=== PATIENT | male | born 1960 | race Caucasian/White ===

== ENCOUNTER → 2017-02-27 | Outpatient (CLI) | payer OTHER, MEDICAID | LOC: FIMAGING 14:06 | PROVIDERS: ATTEND Podiatrist Primary Podiatric Medicine | DX: R22.41 Localized swelling, mass and lump, right lower limb (principal); M79.661 Pain in right lower leg ==

== ENCOUNTER 2017-10-11 12:03 | Emergency (ER) | payer OTHER ==
[2017-10-11 12:12] VITALS: O2SAT 96
--- NOTE | 2017-10-11 12:58 | ASMTCMCOM ---
CM Note CM Note Notes: Pt requesting assistance with getting a new PCP since recently moving back to [place] from [place]. This CM called [facility] Centralized Scheduling and was able to get pt an appt tomorrow 10/12/17 at 10:30am with Dr Deidre Beverly at [facility]. Patient says this appt will work and understands he needs to arrive 15 min early. Pt plans on also discussing with Dr Beverly his need for a urologist referral, possibly a prescription for his straight cath supplies, and pain mgmt referral. CM available for further assistance if needed. Date Signed: 10/11/2017 12:58 PM Electronically Signed By:Rosaura Vinson RN
--- NOTE | 2017-10-11 13:02 | ASMTLACE ---
YUMI Acuity / Level of Answers: No Care: Did the patient have an inpatient admission? 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
--- NOTE | 2017-10-11 13:05 | ASDISCHSUM ---
Discharge Information Plan Status:Home with No Needs Medically Cleared to Leave: Discharge Date: CM D/C Disposition:Home, Routine, Self-Care ADT D/C Disposition: Projected Discharge Date: Transportation at D/C:None or Unknown Discharge Delay Reason: Follow-Up Date: Discharge Slot: Final Diagnosis: Placement Information Patient Contact Information Contact Name:DOROTHEA Relationship:Sister Address: Work Phone: City:[place] Alternate Phone: State/[place] Code[place] Email: Financial Information Financial Class:Medicare Advantage Plans Primary Plan Desc:[place] [facility] ver[employer] Primary Plan Number:[id number] Secondary Plan Desc: Secondary Plan Number: Assessment Information [facility] CM Progress Note CM Note CM Note Notes: Pt requesting assistance with getting a new PCP since recently moving back to [place] from [place]. This CM called [facility] Scheduling and was able to get pt an appt tomorrow 10/12/17 at 10:30am with Dr Deidre Beverly at [facility]. Patient says this appt will work and understands he needs to arrive 15 min early. Pt plans on also discussing with Dr Beverly his need for a urologist referral, possibly a prescription for his straight cath supplies, and pain mgmt referral. CM available for further assistance if needed. Date Signed: 10/11/2017 12:58 PM Electronically Signed By:Rosaura Vinson RN LACE LACNissa Acuity / Level of Answers: No Care: Did the patient have an inpatient admission? 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
[2017-10-11] MEDS ORDERED: KETOROLAC 30 MG/1 ML SDV IM ONE (13:37)
--- NOTE | 2017-10-11 13:45 | EDPHY ---
H & P Time Seen by Provider: 10/11/17 12:55 HPI/ROS: HPI Foot pain from peripheral neuropathy. 56-year-old male by private vehicle. This patient has a history of HIV as well as peripheral neuropathy. He is currently taking gabapentin 800 mg twice daily for his peripheral neuropathy. He has also been on Lyrica as well as amitriptyline. He presents complaining of continued pain associated with his peripheral neuropathy in his feet. He reports this is the identical pain he has had for many years. He is asking for pain medication. He was seen by case management in the emergency department shortly after triage. We have arranged for a primary care physician follow-up for him tomorrow. He can then be referred as needed to a paint booth operator according to case management. He denies any history of trauma. Denies any ulcerations. No other complaints. ROS: Constitutional: No fever, no chills. No weakness. Respiratory: No cough. No shortness of breath. Cardiac: No chest pain, no palpitations. Gastrointestinal: No abdominal pain, no vomiting, no diarrhea. Musculoskeletal: No back pain. No neck pain. As above. Skin: No rashes. No lacerations returns. Neurological: No headache. No focal weakness or altered sensation. Past medical history: HIV, currently managed at the [facility]. Peripheral neuropathy. Shingles. Social history: Here by himself currently. Nonsmoker. No alcohol. Physical Exam: General Appearance: Alert, he does not appear in distress. This patient is responding to questions appropriately and in full sentences. This patient appears well-hydrated and well-nourished. Eyes: Pupils equal and round no pallor or injection. No lid edema, erythema or injection. Lower extremity exam: Examination of both feet, the skin is intact, normal capillary refill in all digits with strong dorsalis pedis and posterior tibial pulses bilaterally. No skin breakdown or ulcerations. Sensation is intact to light touch in all dermatomes. No bony tenderness on palpation of the feet and ankles bilaterally. Neurological: Motor sensory function is grossly intact. Cranial nerves are normal. Gait is normal. Skin: Warm and dry, no rashes. Extremities are symmetrical. All joints range without pain or impingement. Psychiatric: No agitation. No depression. Database: EKG: Imaging: Procedures: Emergency department course: Vital signs reviewed. He is moderately hypertensive. Vital signs otherwise normal. He asked me for narcotic pain medication. I told him that this was not an appropriate type pain medication for his pain which is neuropathic in nature. I explained to him that he is being prescribed the correct medications. He does not have any contraindications to NSAIDs. No history of renal dysfunction. Normal creatinine verified from February of 2017. No history of stomach ulcerations. I will give him intramuscular Toradol. He seems satisfied with this. Plan will then be to have him follow up with his primary care physician which was arranged through case management as noted above tomorrow for ongoing management of his peripheral neuropathy and referral to a pain specialist or neurologist as needed. He feels comfortable with this and endorses this management plan. Return to emergency department precautions were reviewed with him. All of his questions were answered. He was discharged in good condition. Differential Diagnosis: The differential diagnosis on this patient includes but is not limited to peripheral neuropathy. Soft tissue ulceration, acute neurologic injury, acute bony injury, compartment syndrome, cellulitis unlikely. This represents a partial list of diagnoses considered. These considerations are based on history , physical exam, past history, reassessment and diagnostic testing. Smoking Status: Never smoked Constitutional: Initial Vital Signs Temperature (C) 36.5 C 10/11/17 12:08 Heart Rate 88 10/11/17 12:08 Respiratory Rate 17 10/11/17 12:08 Blood Pressure 144/98 H 10/11/17 12:08 O2 Sat (%) 96 10/11/17 12:08 O2 Delivery Mode Room Air Allergies/Adverse Reactions: abacavir Allergy (Verified 10/11/17 12:08) Home Medications: Medication Instructions Recorded Emtricitabine/Tenofovir [Truvada 1 tab PO DAILY 04/22/16 200MG/300MG (*)] Nevirapine [Viramune 200 mg (*)] 200 mg PO BID 04/22/16 Oxybutynin Chloride [Ditropan Xl] 10 mg PO HS 04/22/16 Gabapentin 800 mg 10/11/17 Departure - Departure Disposition: Home, Routine, Self-Care Clinical Impression: Peripheral neuropathy Condition: Good Instructions: Peripheral Neuropathy (ED) Additional Instructions: You have a new patient appointment tomorrow 10/12/17 at 10:30am with Dr.Stephanie Beverly at [facility]. Please arrive 15 minutes early to fill out paperwork. Also be sure to bring your ID, Insurance card and a list of all medications you are currently taking. Read and follow provided instructions. Follow-up with your primary care physician as above for ongoing management of your peripheral neuropathy. Your primary care physician can refer you to a neurologist or pain specialist as needed. Do not take any ibuprofen for the next 24 hr. Take your medication as prescribed. Return to the emergency department for worsening fever, swelling or discoloration of your feet, worsening pain or other serious concerns. Referrals: Deidre Beverly MD [Medical Doctor] - As per Instructions
[2017-10-11 14:35] VITALS: BP 138/74; PULSE 78; RESP 16; TEMP 97.9
== END 2017-10-11 14:35 | disposition home or self-care (01) ==
DX: G62.9 Polyneuropathy, unspecified (principal); B20 Human immunodeficiency virus [HIV] disease
CPT/HCPCS: 96372; 99284; J1885